=== PATIENT | male | born 1950 | race Caucasian/White ===

== ENCOUNTER 2019-11-12 11:23 | Day surgery (SDC) | payer MEDICARE ==
--- NOTE | 2019-11-05 10:37 | HP ---
DATE OF SURGERY: 11/12/2019 HISTORY OF PRESENT ILLNESS: The patient presents to the office with complaints of acid reflux. It is getting worse. He does state that he is having some trouble swallowing and it feels like his throat is thick. He denies any history of prior EGD. PAST MEDICAL HISTORY: Reflux. Benign prostatic hypertrophy. Hyperlipidemia. PAST SURGICAL HISTORY: Sinus surgery. Left hand finger #5 surgery. ALLERGIES: NKDA. CLAMS. MEDICATIONS: Omeprazole. Atorvastatin. Tamsulosin. Aspirin. FAMILY HISTORY: Brother with liver cancer. SOCIAL HISTORY: He smokes one and a half packs of cigarettes per day. He reports occasional alcohol use. REVIEW OF SYSTEMS: CONSTITUTIONAL: No fever. No chills. CHEST: Denies shortness of breath. CVS: Denies chest pain. ABDOMEN: Reports epigastric pain. Denies nausea, vomiting, diarrhea, constipation or rectal bleeding. : Denies dysuria or hematuria. PHYSICAL EXAMINATION: GENERAL: No acute distress. CHEST: Nonlabored. No shortness of breath. CVS: Regular rate and rhythm. ABDOMEN: Soft, nontender to palpation. EXTREMITIES: No edema. NEUROLOGIC: Alert. PSYCHIATRIC: Appropriate. ASSESSMENT: Epigastric pain. PLAN: EGD with Dr. Ciro Ramsey. As dictated by Katie Arceo NP.
[2019-11-12] MEDS ORDERED: VERSED 5 MG/5 ML IV ONE (11:24)
[2019-11-12] MEDS ORDERED: DEMEROL 50 MG IV ONE ×2 (11:24)
[2019-11-12] MEDS ORDERED: Lactated Ringers 1,000 ML IV SCH (11:30)
--- NOTE | 2019-11-12 15:38 | OP ---
SURGERY DATE/TIME: 11/12/2019 1444 PREOPERATIVE DIAGNOSIS: Symptoms of reflux, epigastric pain and some dysphagia. POSTOPERATIVE DIAGNOSES: 1) Grade II-III gastroesophageal reflux disease. 2) No hiatal hernia. PROCEDURE: EGD. SURGEON: Ciro Ramsey M.D. LATHE SCALPER OPERATOR: Luis A Roman, [facility] Resident II. ANESTHESIA: IV sedation 15 minutes monitored. COMPLICATIONS: None. CONDITION: Stable. INDICATION: The patient has reflux symptoms, epigastric pain, difficulty swallowing. DESCRIPTION OF PROCEDURE: Taken to endoscopy. Left lateral decubitus position. 250 followed by 225, oximeter monitored. Oximetry kept over 90%. Comfort level was excellent. Scope introduced. Pharyngoesophageal junction normal. Esophagus normal down to gastroesophageal junction. A 2 cm rim of esophagitis grade II, no hiatal hernia. Gastric rugae just slightly prominent. There was no retained contents. There were 2 ounces of retained clear gastric fluid. Pylorus looked wide open. Duodenal bulb satisfactory. Second portion satisfactory. Ampullary satisfactory. Scope withdrawn looped upon itself. No hiatal hernia from below. Scope withdrawn. Again noted grade II/III gastroesophageal reflux disease but no stricture. No gastric or esophageal varices. Scope withdrawn. The patient tolerated the procedure satisfactorily. Protonix was added.
[2019-11-12 15:55] VITALS: BP 134/77; PULSE 87; O2SAT 96
== END 2019-11-12 16:06 | disposition home or self-care (01) ==
LOC: SDC 11:23
PROVIDERS: ATTEND Surgery
DX: K21.9 Gastro-esophageal reflux disease without esophagitis (principal); R13.10 Dysphagia, unspecified
CPT/HCPCS: J2175; J2250

== ENCOUNTER 2020-01-07 11:37 | Day surgery (SDC) | payer MEDICARE ==
--- NOTE | 2020-01-07 07:37 | HP ---
DATE OF SURGERY: 01/07/2020 ADMISSION DIAGNOSIS: Tonsillar cancer. ANTICIPATED PROCEDURE: Port placement for chemotherapy. 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 He is being seen by Dr. Zamora and is referred for port placement for chemotherapy. The patient is 68 years old and he is well known to myself. PAST MEDICAL HISTORY: ALLERGIES: NKDA. CLAMS. MEDICATIONS: See list. PAST SURGICAL HISTORY: Cyst on the scalp. EGD. Broken finger. Sinus surgery. Knee surgery. SOCIAL HISTORY: Positive tobacco. Negative ETOH. FAMILY HISTORY: Negative. PHYSICAL EXAMINATION: VITAL SIGNS: Normal. CHEST: Clear. COR: Regular. IMPRESSION: A patient requiring access for chemotherapy for tonsillar cancer. PLAN: Port placement.
[~2020-01-07 11:37] MED LIST: CEFAZOLIN 2 GM-D5W BAG** 2 GM/50 ML ML IV SCH; Lactated Ringers 1,000 ML IV SCH; XYLOCAINE 1% HCL 20 ML MDV ONE
[2020-01-07] MEDS ORDERED: CEFAZOLIN 2 GM-D5W BAG** 2 GM/50 ML ML IV ONE (11:45)
[2020-01-07] MEDS ORDERED: Lactated Ringers 1,000 ML IV ONE (11:45)
[2020-01-07] MEDS ORDERED: DIPRIVAN 200 MG/20 ML IV ONE ×3 (12:12→13:28)
[2020-01-07] MEDS ORDERED: SUBLIMAZE 100 MCG/2 ML ONE (12:12)
[2020-01-07] MEDS ORDERED: Versed 2 MG/2 ML Injection ONE (12:12)
--- NOTE | 2020-01-07 14:15 | XRAY ---
Indication: Port placement. Intraoperative fluoroscopy was provided for 2 seconds. Single digital spot image submitted for interpretation demonstrates partially visualized catheter tip projecting over the SVC. Correlate with intraoperative findings/report.
--- NOTE | 2020-01-07 14:22 | OP ---
SURGERY DATE/TIME: 01/07/2020 1305 PREOPERATIVE DIAGNOSIS: Inadequate access for chemotherapy for tonsillar cancer. POSTOPERATIVE DIAGNOSIS: Inadequate access for chemotherapy for tonsillar cancer. PROCEDURE: Left subclavian/atrial Port-A-Cath tunnel port with tunneling and fluoroscopy. SURGEON: Ciro Ramsey M.D. ANESTHESIA: MAC. COMPLICATIONS: None. CONDITION: Stable. INDICATION: A patient requiring access. DESCRIPTION OF PROCEDURE: Routine prep and drape. MAC sedation provided. Excellent anesthesia level was present, 1% lidocaine. Venipuncture first puncture obtained. Pocket fashioned with electrocautery, secured with 3-0 Prolene, 3-0 Vicryl, 4-0 Vicryl and Steri-Strips. It aspirated nicely, flushed nicely and the tip was in the superior vena cava/atrial junction. No pneumothorax. Ready to use.
[2020-01-07 15:22] VITALS: O2SAT 98
[2020-01-07 15:26] VITALS: BP 151/90; PULSE 64
== END 2020-01-07 15:00 | disposition home or self-care (01) ==
LOC: SDC 11:37
PROVIDERS: ATTEND Surgery
DX: C09.9 Malignant neoplasm of tonsil, unspecified (principal)
CPT/HCPCS: 77001; C1788; J0690; J1642; J2250; J2704; J3010

== ENCOUNTER 2020-11-17 08:35 | Day surgery (SDC) | payer MEDICARE ==
--- NOTE | 2020-11-09 15:26 | HP ---
DATE OF SURGERY: 11/17/2020 HISTORY OF PRESENT ILLNESS: The patient presented with an undesired port. The patient has a history of tonsillar cancer. The patient is no longer in need of port and desires removal. PAST MEDICAL HISTORY: Hyperlipidemia. Benign prostatic hypertrophy. Acid reflux. PAST SURGICAL HISTORY: None reported. ALLERGIES: NONE REPORTED. MEDICATIONS: Tamsulosin, pantoprazole, atorvastatin, glucosamine, Centrum Silver, aspirin, magnesium, iron, omega-3 fish oil, vitamin D3. FAMILY HISTORY: None reported. SOCIAL HISTORY: None reported. REVIEW OF SYSTEMS: CONSTITUTIONAL: Denies fever or chills. CHEST: Denies shortness of breath. CVS: Denies chest pain. ABDOMEN: Denies abdominal pain. INTEGUMENTARY: Negative. PHYSICAL EXAMINATION: GENERAL: No acute distress. CHEST: Nonlabored. No shortness of breath. CVS: Regular rate and rhythm. ABDOMEN: Soft. EXTREMITIES: No edema. NEUROLOGIC: Alert. PSYCHIATRIC: Appropriate. IMPRESSION: Undesired port. PLAN: Port removal with Dr. Ciro Ramsey. As dictated by Katie Arceo NP.
[~2020-11-17 08:35] MED LIST changes: -CEFAZOLIN 2 GM-D5W BAG** 2 GM/50 ML ML IV SCH; +Lactated Ringers 1,000 ML IV ONE; -Lactated Ringers 1,000 ML IV SCH
[2020-11-17 11:57] VITALS: BP 98/59; PULSE 64; O2SAT 99
--- NOTE | 2020-11-17 12:37 | OP ---
SURGERY DATE/TIME: 11/17/2020 1126 PREOPERATIVE DIAGNOSIS: Undesired Port-A-Cath. POSTOPERATIVE DIAGNOSIS: Undesired Port-A-Cath. PROCEDURE: Port removal. SURGEON: Ciro Ramsey M.D. ANESTHESIA: Local. INDICATION: The patient has completed therapy and presents for port removal. DESCRIPTION OF PROCEDURE: Taken to surgery. Routine prep and drape. 1% lidocaine. The catheter and port removed in total. Hemostasis obtained with electrocautery, closed with 3-0, 4-0 Vicryl and Steri-Strips. The patient tolerated the procedure satisfactorily.
== END 2020-11-17 12:00 | disposition home or self-care (01) ==
LOC: SDC 08:35
PROVIDERS: ATTEND Surgery
DX: Z45.2 Encounter for adjustment and management of vascular access device (principal); Z85.89 Personal history of malignant neoplasm of other organs and systems; Z79.899 Other long term (current) drug therapy

== ENCOUNTER 2020-12-19 16:52 | Emergency (ER) | payer MEDICARE ==
[2020-12-19] MEDS ORDERED: EPINEPHRINE 1MG/ML AMP IM ONE (16:59)
[2020-12-19] MEDS ORDERED: Pepcid 20 MG VIAL IV ONE ×2 (16:59→17:19)
[2020-12-19 17:05] VITALS: BP 99/65
[2020-12-19] MEDS ORDERED: EPINEPHRINE 1MG/ML AMP ONE (17:19)
[2020-12-19 18:13] VITALS: PULSE 60; O2SAT 99
--- NOTE | 2020-12-19 18:34 | ERPHSYRPT ---
- History of Present Illness Source: patient Patient Subjective Stated Complaint: Pt c/o of hives to kailey legs, kailey arms, and itchy throat Triage Nursing Assessment: Pt was brought to the ER by his , vitals wnl, denies pain, large hives to kailey thighs, kailey arms, doesn't appear to be in any distress Physician History: 70 yo wm w urticaria/pruritis before arrival. Pt denies new meds/exposures/previous h/o urticaria. He did possible eat a donut 30 minutes before arrival. He denies dyspnea/N/V/dysphagia/chest pain. Timing/Duration: sudden Quality: itchy Severity: mild Location: extremities Possible Causes: no cause identified Modifying Factors: Improves With: antihistamine (Took Benadryl before arrival ) Associated Symptoms: No blisters, No change in skin texture, No difficulty breathing, No edema, No fever, No flushing, No headache, No hives, No jaundice, No malaise, No nasal congestion, No numbness, No pallor, No paresthesia, No petechiae, No rash, No sore throat, No swelling/mass/lumps Allergies/Adverse Reactions: clams Adverse Reaction (Severe, Verified 12/19/20 17:05) Home Medications: Aspirin [Ankur Chewable Aspirin] 81 mg PO DAILY 12/22/15 [History] Atorvastatin Calcium 20 mg PO DAILY 12/22/15 [History] Tamsulosin HCl 0.4 mg PO DAILY 12/22/15 [History] Glucosam/Chond/Hyalu/Cf Borate [Move Free Joint Health Tablet] 1 each PO DAILY 11/04/19 [History] Krill/Om-3/Dha/Epa/Phospho/Ast [Krill Oil 500 mg Softgel] 1 each PO DAILY 11/04/19 [History] Magnesium Oxide [Magnesium] 400 mg PO DAILY 11/04/19 [History] Multivit-Min/FA/Lycopen/Lutein [Centrum Silver Men Tablet] 1 each PO DAILY 11/04/19 [History] Cholecalciferol (Vitamin D3) [Vitamin D3] 2,000 unit PO UD 11/08/20 [History] Ferrous Sulfate [Slow Release Iron] 45 mg PO UD 11/08/20 [History] Travel Risk - International Travel Have you traveled outside of the country in past 3 weeks: No - Coronavirus Screening Are you exhibiting any of the following symptoms?: No Close contact with a COVID-19 positive Pt in past 14-21 Days: No - Vaccine Status Have you recieved a Covid-19 vaccination: No - Review of Systems Constitutional: No Symptoms Eyes: No Symptoms Ears, Nose, & Throat: No Symptoms Respiratory: No Symptoms Cardiac: No Symptoms Abdominal/Gastrointestinal: No Symptoms Genitourinary Symptoms: No Symptoms Musculoskeletal: No Symptoms Skin: Rash Neurological: No Symptoms Psychological: No Symptoms Endocrine: No Symptoms Hematologic/Lymphatic: No Symptoms Immunological/Allergic: No Symptoms - Past Medical History Pertinent Past Medical History: Yes Neurological History: Other ENT History: Other Cardiac History: High Cholesterol Respiratory History: Sleep Apnea Endocrine Medical History: Other Musculoskeletal History: No Pertinent History GI Medical History: GERD History: No Pertinent History Psycho-Social History: No Pertinent History Male Reproductive Disorders: No Pertinent History Other Medical History: 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 cancer of the tonsils, chemo and radiation to CA of tonsils - Past Surgical History Past Surgical History: Yes Neuro Surgical History: No Pertinent History Cardiac: No Pertinent History Respiratory: No Pertinent History Gastrointestinal: No Pertinent History Genitourinary: No Pertinent History Musculoskeletal: Orthopedic Surgery Male Surgical History: Vasectomy Other Surgical History: pin in fourth finger left and removed, 2 sinus surgeries. eyelid surgery, 2 knee scopes, one on each knee. colonoscopy, EGD November 2019 with recent dx of tonsil. cancer, bx of tonsils - Social History Smoking Status: Current every day smoker How long have you smoked: 50 Exposure to second hand smoke: Yes Drug Use: none Patient Lives Alone: No Significant Family History: no pertinent family hx - Nursing Vital Signs Nursing Vital Signs: Initial Vital Signs Temperature 96.8 F 12/19/20 16:55 Pulse Rate 59 L 12/19/20 16:55 Blood Pressure 99/65 12/19/20 16:55 O2 Sat by Pulse Oximetry 98 12/19/20 16:55 Pain Scale Pain Intensity 0 Systolic on low side - Physical Exam General Appearance: no apparent distress Eye Exam: PERRL/EOMI, eyes nml inspection Ears, Nose, Throat Exam: normal ENT inspection, TMs normal, pharynx normal, moist mucous membranes Neck Exam: normal inspection, non-tender, supple, full range of motion Respiratory Exam: normal breath sounds, lungs clear, airway intact, No respir atory distress Cardiovascular Exam: regular rate/rhythm, normal heart sounds, normal peripheral pulses, No murmur Gastrointestinal/Abdomen Exam: soft, normal bowel sounds, No tenderness Back Exam: normal inspection, normal range of motion, No CVA tenderness Neurologic Exam: alert, oriented x 3, cooperative, coffee maker II-XII nml as tested, normal mood/affect, nml cerebellar function, nml station & gait, sensation nml, No motor deficits, No sensory deficit Skin Exam: other (Urticaria superior thighs and B upper extremities) Lymphatic Exam: No adenopathy SpO2 Interpretation: normal SpO2: 99 O2 Delivery: Room Air - Course Nursing assessment & vital signs reviewed: Yes Ordered Tests: Medication Summary Discontinued Medications Generic Name Dose Route Start Last Admin Trade Name Freq PRN Reason Stop Dose Admin Epinephrine HCl 0.3 mg 12/19/20 16:59 12/19/20 17:30 Epinephrine 1mg/Ml Amp IM 12/19/20 17:00 0.3 mg STAT ONE Administration Epinephrine HCl Confirm 12/19/20 17:19 Epinephrine 1mg/Ml Amp Administered 12/19/20 17:20 Dose 1 mg .ROUTE .STK-MED ONE Famotidine 40 mg 12/19/20 16:59 12/19/20 18:10 Pepcid 20 Mg Vial IV 12/19/20 17:00 40 mg STAT ONE Administration Famotidine Confirm 12/19/20 17:19 Pepcid 20 Mg Vial Administered 12/19/20 17:20 Dose 40 mg IV .STK-MED ONE - Progress Progress Note: 12/19/20 19:04 Pt improved w 0.3 SQ epi/40mg IV Pepcid Pt refused steroid use Counseled pt/family regarding: diagnosis, need for follow-up - Departure Departure Disposition: Home Clinical Impression: Urticaria Condition: Stable Critical Care Time: No Referrals: BARRY BRADLEY [Primary Care Provider] - Instructions: Мария (DC) Additional Instructions: Benadryl 25mg every 6 hours as needed Use EpiPen if you get short of breath/trouble swallowing/worsening rash Prescriptions: Epinephrine [Epipen] 0.3 mg IM DIRECTIONS UNKNOWN PRN #2 pens PRN Reason: allergic reaction
== END 2020-12-19 19:21 | disposition home or self-care (01) ==
LOC: ED 16:52
DX: L50.9 Urticaria, unspecified (principal)
CPT/HCPCS: 36000; 96372; 96374; 99284; J0171

== ENCOUNTER 2022-06-30 20:50 | Emergency (ER) | payer MEDICARE ==
[2022-06-30 21:02] VITALS: O2SAT 97
[2022-06-30] MEDS ORDERED: Pepcid 20 MG VIAL IV ONE ×2 (21:17→21:30)
[2022-06-30] MEDS ORDERED: BENADRYL 50 MG/ML IM ONE (21:17)
--- NOTE | 2022-06-30 21:23 | ERPHSYRPT ---
- History of Present Illness Time Seen by Provider: 06/30/22 21:19 Source: patient Exam Limitations: no limitations Patient Subjective Stated Complaint: Around 8pm, I noticed itching and redness Triage Nursing Assessment: Pt ambulated into ER, at bedside. Pt c/o allergic reaction and rash to bilat arms, bilat legs to inner thighs and posterior legs. The areas are red, warm and welts seen. Pt denies any shortness or breath or chest pain. Physician History: Around 8pm, I noticed itching and redness and rash to bilat arms, bilat legs to inner thighs and posterior legs. The areas are red, warm and welts seen. Pt denies any shortness or breath or chest pain or itchy throat. Timing/Duration: today Severity: moderate Associated Symptoms: denies symptoms Allergies/Adverse Reactions: adolfo Adverse Reaction (Severe, Verified 12/19/20 17:05) Home Medications: Aspirin [Ankur Chewable Aspirin] 81 mg PO DAILY 12/22/15 [History] Atorvastatin Calcium 20 mg PO DAILY 12/22/15 [History] Tamsulosin HCl 0.4 mg PO DAILY 12/22/15 [History] Glucosam/Chond/Hyalu/Cf Borate [Move Free Joint Health Tablet] 1 each PO DAILY 11/04/19 [History] Krill/Om-3/Dha/Epa/Phospho/Ast [Krill Oil 500 mg Softgel] 1 each PO DAILY 11/04/19 [History] Magnesium Oxide [Magnesium] 400 mg PO DAILY 11/04/19 [History] Multivit-Min/FA/Lycopen/Lutein [Centrum Silver Men Tablet] 1 each PO DAILY 11/04/19 [History] Cholecalciferol (Vitamin D3) [Vitamin D3] 2,000 unit PO UD 11/08/20 [History] Ferrous Sulfate [Slow Release Iron] 45 mg PO UD 11/08/20 [History] Hx Tetanus, Diphtheria Vaccination/Date Given: Yes Hx Influenza Vaccination/Date Given: No Hx Pneumococcal Vaccination/Date Given: Yes Travel Risk - International Travel Have you traveled outside of the country in past 3 weeks: No - Coronavirus Screening Are you exhibiting any of the following symptoms?: No Close contact with a COVID-19 positive Pt in past 14-21 Days: No - Vaccine Status Have you recieved a Covid-19 vaccination: No - Review of Systems Constitutional: No Symptoms Eyes: No Symptoms Ears, Nose, & Throat: No Symptoms Respiratory: No Symptoms Cardiac: No Symptoms Abdominal/Gastrointestinal: No Symptoms Genitourinary Symptoms: No Symptoms Musculoskeletal: No Symptoms Skin: Rash Neurological: No Symptoms Psychological: No Symptoms Endocrine: No Symptoms - Past Medical History Pertinent Past Medical History: Yes Neurological History: Other ENT History: Other Cardiac History: High Cholesterol Respiratory History: Sleep Apnea Endocrine Medical History: Other Musculoskeletal History: No Pertinent History GI Medical History: GERD History: No Pertinent History Psycho-Social History: No Pertinent History Male Reproductive Disorders: No Pertinent History Other Medical History: 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 cancer of the tonsils, chemo and radiation to CA of tonsils - Past Surgical History Past Surgical History: Yes Neuro Surgical History: No Pertinent History Cardiac: No Pertinent History Respiratory: No Pertinent History Gastrointestinal: No Pertinent History Genitourinary: No Pertinent History Musculoskeletal: Orthopedic Surgery Male Surgical History: Vasectomy Other Surgical History: pin in fourth finger left and removed, 2 sinus surgeries. eyelid surgery, 2 knee scopes, one on each knee. colonoscopy, EGD November 2019 with recent dx of tonsil. cancer, bx of tonsils - Social History Smoking Status: Current every day smoker How long have you smoked: 50 yrs Exposure to second hand smoke: No Drug Use: none Patient Lives Alone: No Significant Family History: no pertinent family hx - Nursing Vital Signs Nursing Vital Signs: Initial Vital Signs Temperature 98.0 F 06/30/22 20:56 Pulse Rate 100 H 06/30/22 20:56 Respiratory Rate 22 06/30/22 20:56 Blood Pressure 116/78 06/30/22 20:56 O2 Sat by Pulse Oximetry 97 06/30/22 20:56 Pain Scale Pain Intensity 0 - Physical Exam General Appearance: no apparent distress Eye Exam: PERRL/EOMI Ears, Nose, Throat Exam: normal ENT inspection Neck Exam: normal inspection Respiratory Exam: normal breath sounds Cardiovascular Exam: regular rate/rhythm Gastrointestinal/Abdomen Exam: soft Back Exam: rash Extremity Exam: other (maculopapular rash) Neurologic Exam: alert, oriented x 3 Skin Exam: normal color, rash SpO2 Interpretation: normal SpO2: 97 O2 Delivery: Room Air - Course Nursing assessment & vital signs reviewed: Yes Ordered Tests: Medication Summary Generic Name Dose Route Start Last Admin Trade Name Freq PRN Reason Stop Dose Admin Diphenhydramine HCl 50 mg 06/30/22 21:17 Diphenhydramine Hcl 50 Mg/Ml Vial IM 06/30/22 21:18 STAT ONE Famotidine 20 mg 06/30/22 21:17 Famotidine 20 Mg/1 Vial IV 06/30/22 21:18 STAT ONE - Progress Progress: unchanged Counseled pt/family regarding: diagnosis, need for follow-up Medical Desision Making - Discussion of managment Agreed on:: Treatment plan, need for follow-up - Departure Departure Disposition: Home Clinical Impression: Urticaria Condition: Stable Critical Care Time: No Referrals: BARRY BRADLEY [Primary Care Provider] - Follow up/PCP as directed Instructions: Мария Hsieh (DC), Allergic Reaction ED Additional Instructions: Please take Benadryl 25 mg every 6 hours with Pepcid 20 mg twice a day for at least next 3 to 4 days. Discharge/Care Plan GRETCHEN LOPEZ was seen on 06/30/22 in the Emergency Room. The patient was counseled regarding Diagnosis,Lab results, Imaging studies, need for follow up and when to return to the Emergency Room. Prescriptions given: Discharge Note I have spoken with the patient and/or caregivers. I have explained the patient's condition, diagnosis and treatment plan based on the information available to me at this time. I have answered the patient's and/or caregiver's questions and addressed any concerns. The patient and/or caregivers have as good understanding of the patient's diagnosis, condition and treatment plan as can be expected at this point. The vital signs have been stable. The patient's condition is stable and appropriate for discharge from the emergency department. The patient will pursue further outpatient evaluation with the primary care physician or other designated or consulting physician as outlined in the discharge instructions. The patient and/or caregivers are agreeable to this plan of care and follow-up instructions have been explained in detail. The patient and/or caregivers have received these instruction. The patient/and or caregivers are aware that any significant change in condition or worsening of symptoms should prompt an immediate return to this or the closest emergency department or call 911. GRETCHEN LOPEZ was seen on 06/30/22 n the Emergency Room. At that time you were treated for an emergent condition, during your visit Laboratory, Radiology and/or other procedures may have been ordered. It is very important that you follow-up with your Primary Care Physician BARRY BRADLEY within the next 24-48 hours to review your Emergency Room visit and the final results of testing that was ordered. Some test results such as Urine Cultures, Blood Cultures, and other cultures if ordered will not be finalized for 24-48 hours. If you do not have a Primary Care Provider please call the medical records department at [phone] ext [phone] to obtain a copy of your results or you may sign into our patient portal to obtain these results by visiting us [email or web address] and completing the following steps: 1. Click on the Patient Portal link 2. Click the Patient Self Enrollment Link to complete the enrollment form and entering your 3. Once the enrollment form is completed you will receive an email with a temporary ID and password at the email address you provided. 4. Next choose a user name and password. Your user name must be at least 4 characters long and your password must be at least 4 characters long. 5. Choose a security question from the list and provide your answer to the question. If you already have signed into the Health Portal you may access your Health Care Information 03/12 by the following steps: 1. Login to our website @ [email or web address] 2. Enter your original user name and password. FAQS [facility] Health Portal is an online tool that contains your Lab Results, Radiology Reports, Visit History, Discharge Instructions and Health Summary Lab and Radiology Results will not be available for 72 hours on the portal. The Portal is a secure site, passwords are encryted and URLs are re-written so they cannot be copied and pasted. You and authorized family members are the only ones who can access your Portal. Also there is a timeout feature that protects your information if you leave the Portal page open. If you have technical difficulty please use the Contact Us link on the page this will allow you to submit any questions you have regarding the Portal or you may contact the Medical Record Department at [phone] ext [phone].
[2022-06-30] MEDS ORDERED: BENADRYL 50 MG/ML ONE (21:30)
[2022-06-30] MEDS ORDERED: solu-CORTEF 250MG ONE (21:38)
[2022-06-30] MEDS ORDERED: solu-CORTEF 250MG IV SCH (21:45)
[2022-06-30 22:21] VITALS: BP 98/67; PULSE 78
== END 2022-06-30 22:30 | disposition home or self-care (01) ==
LOC: ED 20:50
DX: L50.9 Urticaria, unspecified (principal); E78.5 Hyperlipidemia, unspecified; Z79.899 Other long term (current) drug therapy; Z28.310 Unvaccinated for COVID-19; Z72.0 Tobacco use
CPT/HCPCS: 36000; 96372; 96374; 96375; 99284; J1200; J1720

== ENCOUNTER 2024-08-13 08:20 | Day surgery (SDC) | payer MEDICARE ==
--- NOTE | 2024-08-11 10:19 | HP ---
HISTORY AND PHYSICAL HISTORY OF PRESENT ILLNESS: The patient is a 73-year-old male who presents for a positive Cologuard. Last colonoscopy was in 2016. He has been having no issues at this time. He does have a history tonsil cancer. PAST MEDICAL HISTORY: BPH, thyroid, heartburn, hyperlipidemia, tonsil cancer. HOME MEDICATIONS: Synthroid, tamsulosin, omeprazole, atorvastatin, glucosamine, aspirin, niacin, magnesium, vitamin C, vitamin D, Quercetin, zinc, B12, CoQ10, biotin. ALLERGIES: None. PAST SURGICAL HISTORY: Sinus surgery, vasectomy, nasal surgery. SOCIAL HISTORY: Current smoker. Occasional alcohol. FAMILY HISTORY: Liver cancer. REVIEW OF SYSTEMS: CONSTITUTIONAL: Denies fever or chills. CHEST: Denies shortness of breath. CARDIOVASCULAR: Denies chest pain. ABDOMEN: Denies abdominal pain. PHYSICAL EXAMINATION: GENERAL: No acute distress. CARDIOVASCULAR: Regular rate and rhythm. RESPIRATORY: Nonlabored. No shortness of breath. ABDOMEN: Soft. ASSESSMENT: Positive Cologuard. PLAN: Colonoscopy with Dr. Ciro Ramsey. This report was dictated for Dr. Ramsey by Katie Arceo NP.
[2024-08-13] MEDS ORDERED: CEFAZOLIN 2 GM/100 ML NaCl 2 GM/100 ML IVPB IV ONE (08:43)
[2024-08-13] MEDS ORDERED: Lactated Ringers 1,000 ML IV ONE (08:43)
[2024-08-13] MEDS: Lactated Ringers 1,000 ML IV SCH (08:48)
[2024-08-13] MEDS: CEFAZOLIN 2 GM/100 ML NaCl 2 GM/100 ML IVPB IV SCH (08:48)
[2024-08-13 11:08] VITALS: RESP 18
[2024-08-13] MEDS ORDERED: propofoL IV ONE ×3 (11:42→12:15)
[2024-08-13] MEDS ORDERED: GlucaGen 1 MG ONE (12:03)
[2024-08-13 12:58] VITALS: O2SAT 96
[2024-08-13 13:09] VITALS: BP 117/64; PULSE 72; TEMP 97.8
--- NOTE | 2024-08-14 11:54 | OP ---
SURGERY DATE/TIME: 08/13/2024 [id number] PREOPERATIVE DIAGNOSIS: Positive Cologuard. POSTOPERATIVE DIAGNOSIS: 1) Zero sigmoid severe diverticulosis. 2) There is no absolute polyp today. PROCEDURE: Colonoscopy to cecum. SURGEON: Ciro Ramsey MD ANESTHESIA: General. COMPLICATIONS: None. CONDITION: Stable. INDICATIONS: Positive Cologuard. DESCRIPTION OF PROCEDURE AND FINDINGS: Taken to endoscopy, left lateral decubitus position. Anal digital examination is satisfactory. Prostate is satisfactory. Scope introduced. Scope advanced to the cecum. Base of cecum, ileocecal valve and appendiceal orifice normal. Ascending, hepatic, transverse, splenic, descending, severe sigmoid diverticulosis. There was almost some light suggestions on a few ridges but we really just did not find anything, rectum, anus. Patient tolerated the procedure satisfactory. Since he did have a positive Cologuard, we will let him go on a 3-year followup at the moment.
== END 2024-08-13 13:20 | disposition home or self-care (01) ==
LOC: SDC 08:20
PROVIDERS: ATTEND Surgery
DX: K57.30 Diverticulosis of large intestine without perforation or abscess without bleeding (principal); R19.5 Other fecal abnormalities; Z85.89 Personal history of malignant neoplasm of other organs and systems
CPT/HCPCS: 99100; J0690; J1610; J2704